=== PATIENT | female | born 1950 | race Caucasian/White ===

== ENCOUNTER → 2016-10-11 | Outpatient (CLI) | payer BC | LOC: LAB 13:56 | PROVIDERS: ATTEND Family Medicine | DX: R19.7 Diarrhea, unspecified (principal) | CPT/HCPCS: 87507 ==

== ENCOUNTER → 2017-01-08 | Outpatient (CLI) | payer MEDICARE, OTHER ==
[~2017-01-08] MED LIST: ATOR80TA PO; CHOL200014 PO; CITA20TA12 PO; DIPH25CA79 PO; HYDR-3702 PO; LEVO25TA2 PO; MELA1TAB10 PO; OMG1KC PO
--- NOTE | 2017-01-08 12:01 | Diagnostic Imaging Report ---
PROCEDURE: MRI left joint lower extremity without contrast. TECHNIQUE: Multiplanar, multisequence non contrast-enhanced MRI of the left lower extremity was accomplished. INDICATION: Chronic foot pain x3 months. Clinical suspicion of stress fracture. FINDINGS: Noncontrast images of the forefoot. There is edema involving the metatarsal head and metaphyseal portion of the second distal metatarsal. There is mild associated edema in the surrounding soft tissues. There are no abscesses or fluid collections. The metatarsophalangeal joint shows minimal effusion. The proximal phalanx of the second digit appears normal with no edema. There are no destructive bony changes noted. The remaining metatarsals and phalanges show normal marrow signal. Mild degenerative changes noted along the first metatarsophalangeal joint. The flexor and extensor tendons appear normal. IMPRESSION: 1. Edema along the distal second metatarsal head and shaft with adjacent periosteal soft tissue edema. These findings are consistent with history of stress fracture. There are no ulcerations of the skin or evidence of abscess or air within the soft tissues to indicate osteomyelitis. 2. Minimal joint effusion in the MP joint of the second digit with no edema of the proximal phalanx second digit. 3. Mild degenerative changes noted of the first metatarsophalangeal joint. Dictated by: Dictated on workstation # [id number]
== END ==
LOC: RAD 09:50
PROVIDERS: ATTEND Family Medicine
DX: M84.375A Stress fracture, left foot, initial encounter for fracture (principal); X58.XXXA Exposure to other specified factors, initial encounter
CPT/HCPCS: 73721